=== PATIENT | male | born 1960 | race Caucasian/White ===

== ENCOUNTER 2017-07-14 13:37 | Emergency (ER) | payer BC, OTHER ==
--- NOTE | 2017-07-14 13:40 | PDOC ---
History of Present Illness - General Chief Complaint: Pain, Acute Stated Complaint: RIGHT SHOULDER PAIN Time Seen by Provider: 07/14/17 13:40 History Source: Patient Exam Limitations: No Limitations - History of Present Illness Initial Comments: 07/14/17 14:37 57y M hx of shoulder dislocations present with shoulder pain. Pt sates he tripped and fell yesterday in his home (last night around 10pm( was witnesed by his , he banged his shoulder against the door jam and fell on the ground. HE denies any other injuries including head injury, loc, neck pain, back pain, numbness/tingling/weakness, abd pain. pt took a few percocet prior to presentation Past History - Past Medical History Allergies/Adverse Reactions: Allergies Allergy/AdvReac Type Severity Reaction Status Date / Time No Known Allergies Allergy Verified 07/14/17 13:38 Home Medications: Ambulatory Orders NK [No Known Home Medication] 07/14/17 Anemia: No Asthma: No Cancer: No Cardiac Disorders: No CVA: No COPD: No CHF: No Dementia: No Diabetes: No GI Disorders: No Disorders: No HTN: No Hypercholesterolemia: No Liver Disease: No Seizures: No Thyroid Disease: No - Surgical History Appendectomy: No Cardiac Surgery: No Cholecystectomy: No Lung Surgery: No Neurologic Surgery: No Orthopedic Surgery: No - Suicide/Smoking/Psychosocial Hx Smoking History: Former smoker Have you smoked in the past 12 months: Yes Hx Alcohol Use: Yes (SOCIAL) Drug/Substance Use Hx: No Substance Use Type: None Hx Substance Use Treatment: No Review of Systems - Review of Systems Able to Perform ROS?: Yes Comments:: 07/14/17 14:44 Constitutional - no reported Fever, Chills, HEENT: no reported vision changes, sore throat Respiratory: no reported cough, sob, hemoptysis Cardiac: no reported chest pain, palpitations, light headedness, leg swelling Abd/GI: no reported abd pain, nausea, vomiting, blood per rectum, melena, diarrhea : no reported dysuria, frequency, discharge Musculskelatal - +R Shoulder pain no reported back pain, joint swelling skin - no reported bruising, erythema, rash neurological: no reported headache, numbness, focal weakness, tingling, ataxia, hematologic: no reported easy bruising, easy bleeding *Physical Exam - Physical Exam Comments: 07/14/17 14:44 GENERAL: The patient is awake, alert, and fully oriented, Nontoxic - in no acute distress. HEAD: Normocephalic, atraumatic. NECK: Normal range of motion, supple, no focal midline tenderness in the cervical, thoracic, lumbar spine LUNGS: Breath sounds equal, clear to auscultation bilaterally. No wheezes, no rhonchi, no rales. HEART: Regular rate and rhythm, normal S1 and S2 without murmur, rub or gallop. ABDOMEN: Soft, nontender, No guarding, no rebound. . No CVA tenderness EXTREMITIES: Fullness in the anterior shoulder with deformity noted the shape of his shoulder, sensation intact in the deltoid region, as well as in extremities, strength symmetric in both hands at/arms SKIN: Warm, Dry, normal turgor, Procedures - Consent Consent obtained: Written - Joint Reduction Right Joint Reduction Site: right: Shoulder, Anterior Dislocation Pre-Procedure NV Exam: normal Conscious Sedation: Yes (140mg of propofol and 50mcg fenanyl) Reduction Attempts: 1 Procedure: Other (external rotation) Post-Procedure NV Exam: normal Complications: No Post Joint Reduction Film: joint reduced Progress: 07/14/17 16:40 sling applied - Additional Procedures Progress: Moderate Sedation Procedure Note Sedation administration time: 4:19pm Sedation end time: 4:30pm 11 minutes spent at patient's bedside providing sedation with Propofol and fentayl for shoulder redution. pt was placed on lunchroom monitor throughout Shoulder reduced with no complications, VSS throughout, patient tolerated procedure well. I was present throughout sedation until the pt was awake, alert to self Medical Decision Making - Medical Decision Making 07/14/17 14:45 Suspect shoulder dislocation confirmed with shoulder x-ray Neurovascularly intact Shoulder dislocated approximately [address] IV will if the patient some morphine possibly may need to sedate the patient for reduction 07/14/17 17:33 post reduction film shows reduction of his shoulder dislcoation post reduction neuro status wnl pt required sedation w/ propofol and fentanyl for reductio, currently back at baseline. will dc with ortho fu sling applied return precautions were discussed I discussed the physical exam findings, ancillary test results and final diagnoses with the patient. I answered all of the patient's questions. The patient was satisfied with the care received and felt comfortable with the discharge plan and treatment plan. The patient will call their primary care physician within 24 hours to arrange follow-up and will return to the Emergency Department with any new, persistent or worsening symptoms. *DC/Admit/Observation/Transfer Diagnosis at time of Disposition: Shoulder dislocation Qualifiers: Encounter type: initial encounter Laterality: right Qualified Code(s): S43.004A - Unspecified dislocation of right shoulder joint, initial encounter - Discharge Dispostion Disposition: HOME Condition at time of disposition: Improved Decision to Admit order: No - Referrals Referrals: Rajinder Gage MD [Staff Physician] - - Patient Instructions Printed Discharge Instructions: DI for Shoulder Dislocation, DI for Moderate Sedation Additional Instructions: Keep your arm in a sling. Avoid painting or plastering until you follow up with orthopedic surgeon as this may increase chances of redislocation. Motrin or Tylenol as needed for any pain or discomfort No heavy lifting with affected arm. Print Language: PORTUGUESE - Post Discharge Activity
[2017-07-14 13:42] VITALS: TEMP 98.5; BMI 24.0
[2017-07-14] MEDS ORDERED: SODIUM CHLORIDE 1,000 ML IV ONE (14:43)
[2017-07-14] MEDS ORDERED: morphine CARPU-JECT 4 MG/1 ML DISP.SYRIN IVPUSH ONE (14:43)
[2017-07-14] MEDS ORDERED: morphine SULFATE 4 MG/ML VIAL ONE (14:50)
[2017-07-14] MEDS ORDERED: PROPOFOL 20 ML ONE (16:07)
[2017-07-14 16:17] VITALS: PULSE 86
[2017-07-14] MEDS ORDERED: PROPOFOL 200 MG/20 ML VIAL IVPUSH ONE (16:38)
[2017-07-14 18:33] VITALS: BP 143/88
== END 2017-07-14 17:38 | disposition home or self-care (01) ==
LOC: FER 13:37
PROC: 0RSJXZZ Reposition Right Shoulder Joint, External Approach (ICD-10-PCS; principal; 2017-07-14)
DX: S43.084A Other dislocation of right shoulder joint, initial encounter (principal); W01.198A Fall on same level from slipping, tripping and stumbling with subsequent striking against other object, initial encounter; Y93.89 Activity, other specified; Y92.009 Unspecified place in unspecified non-institutional (private) residence as the place of occurrence of the external cause; Z87.891 Personal history of nicotine dependence
CPT/HCPCS: 73030-TC-RT-FY; 99282-25; J7030

== ENCOUNTER 2019-04-04 09:30 | Emergency (ER) | payer BC ==
[2019-04-04 09:55] VITALS: BP 130/85; PULSE 90; TEMP 98.6; BMI 24.0
[2019-04-04] MEDS ORDERED: KETAMINE HCL 200 MG/20 ML VIAL IVPUSH ONE (10:46)
[2019-04-04] MEDS ORDERED: morphine CARPU-JECT 4 MG/1 ML DISP.SYRIN IVPUSH ONE (11:09)
[2019-04-04] MEDS ORDERED: morphine SULFATE 4 MG/ML VIAL ONE (11:12)
[2019-04-04] MEDS ORDERED: KETAMINE HCL 200 MG/20 ML VIAL ONE (11:12)
[2019-04-04] MEDS ORDERED: LORazepam 2 MG/ML SDV VIAL ONE (11:51)
--- NOTE | 2019-04-04 12:36 | PDOC ---
Attending Attestation - Resident Resident Name: David Mendenhall - ED Attending Attestation I have performed the following: I have examined & evaluated the patient, The case was reviewed & discussed with the resident, I agree w/resident's findings & plan, Exceptions are as noted - HPI HPI: 04/04/19 12:37 58yo M hx etoh abuse, shoulder dislocation x3, insomnia presents to the ED with R shoulder pain. Pt reports drinking "a few" beers last night, fell landing on his R shoulder. Denies head strike, LOC. Since then progressive shoulder pain, feels like when it has been dislocated in the past. Took an ambien at that point to go to sleep until presenting this morning for evaluation. Denies recent F/C, CP, SOB, N/V/D, headache, focal weakness/numbness - Physicial Exam PE: 04/04/19 12:39 GENERAL: Awake, alert, and fully oriented, in no acute distress HEAD: No signs of trauma EYES: PERRLA, EOMI, sclera anicteric, conjunctiva clear ENT: Oropharynx clear without exudates. Moist mucosa NECK: Normal ROM, supple, no lymphadenopathy, JVD, or masses LUNGS: Breath sounds equal, clear to auscultation bilaterally. No wheezes, and no crackles HEART: Regular rate and rhythm, normal S1 and S2, no murmurs, rubs or gallops ABDOMEN: Soft, nontender, normoactive bowel sounds. No guarding, no rebound. No masses EXTREMITIES: R lateral shoulder deformity noted, limited ROM 2/2 pain, 2+ radial pulse, compartments soft, normal sensation of R shoulder. BACK: no midline cervical, thoracic, or lumbar ttp NEUROLOGICAL: Normal speech, cranial nerves intact SKIN: Warm, Dry, normal turgor, no rashes or lesions noted. - Medical Decision Making 58yo M presents to the ED with R shoulder pain, found to have R shoulder dislocation. No fractures noted. Normal sensation over deltoid Pt consented for sedation, airway box, suction, BVM at bedside Time out competed Dosed 1mg/kg ketamine IV, pt with emergence reaction, screaming, improved with ativan 1mg Dr. Mendenhall attempted downward traction/ext rotation and traction/counter traction unsuccessfully despite multiple attempts Dr. Rivas consulted Pt became, awake, alert, conversive. Pt given 1.5mg more ketamine with good response, no emergence reaction Shoulder reduced with traction Sling placed Pt HDS on monitor Will observe post sedation and obtain post reduction films Post reduction films with good reduction, no fracture. Normal sensation throughout RUE Pt tolerating PO Ambulating IN ED with steady gait He is clinically stable for DC home Discharge - Discharge Information Problems reviewed: Yes Clinical Impression/Diagnosis: Shoulder dislocation, recurrent, Shoulder pain, Fall Condition: Good Disposition: HOME - Follow up/Referral Referrals: Keyshawn Fuentes MD [Staff Physician] - Mike Rivas MD [Staff Physician] - Bayron Reeves MD [Primary Care Provider] - - Patient Discharge Instructions Patient Printed Discharge Instructions: How to Use a Sling, DI for Shoulder Dislocation Additional Instructions: Please see your Primary Doctor and Orthopedic surgeon within the next 48 hours. Read the discharge instructions provided regarding shoulder dislocations. Use ice and over the counter Motrin for pain control as recommended on the packaging. Return to the closest ER for new or concerning symptoms including but not limited to: weakness, changes in sensation to the right arm, dislocations. Use your sling over the next 1 week for comfort and do not use your right arm for overhead activity for 1 week. Thank you - Post Discharge Activity
--- NOTE | 2019-04-04 13:19 | PDOC ---
*Physical Exam - Vital Signs Last Vital Signs Temp Pulse Resp BP Pulse Ox 98.6 F 85 22 H 134/84 96 04/04/19 09:32 04/04/19 11:00 04/04/19 11:00 04/04/19 11:00 04/04/19 11:00 ED Treatment Course - RADIOLOGY Radiology Studies Ordered: Category Date Time Status SHOULDER-RIGHT [RAD] Stat Radiology 04/04/19 12:33 Taken - Medications Given in the ED: ED Medications Discontinued Medications Generic Name Dose Route Start Last Admin Trade Name Pepito PRN Reason Stop Dose Admin Morphine Sulfate 4 mg 04/04/19 11:09 04/04/19 11:17 Morphine Injection - IVPUSH 04/04/19 11:10 4 mg ONCE ONE Administration Medical Decision Making - Medical Decision Making 04/04/19 13:17 58 yo male presents tpo ED after fall with R shoulder pain and deformity. PMH 3 past shoulder dislocations See procedure note Pt obs for 1 hour, awake, alert, ambulatory, vital signs normal throught procedure and is safe for DC home with ortho f/u Discharge - Discharge Information Problems reviewed: Yes Clinical Impression/Diagnosis: Shoulder dislocation, recurrent Condition: Good Disposition: HOME - Admission No - Follow up/Referral Referrals: Mike Rivas MD [Staff Physician] - Bayron Reeves MD [Primary Care Provider] - Keyshawn Fuentes MD [Staff Physician] - - Patient Discharge Instructions Patient Printed Discharge Instructions: DI for Shoulder Dislocation, How to Use a Sling Additional Instructions: Please see your Primary Doctor and Orthopedic surgeon within the next 48 hours. Read the discharge instructions provided regarding shoulder dislocations. Use ice and over the counter Motrin for pain control as recommended on the packaging. Return to the closest ER for new or concerning symptoms including but not limited to: weakness, changes in sensation to the right arm, dislocations. Use your sling over the next 1 week for comfort and do not use your right arm for overhead activity for 1 week. Thank you - Post Discharge Activity Procedure Note Procedure: Right shoulder reduction pt positioned prone with R arm off the bed and 3LBS weight than seated in stretcher up right for reduction Procedural sedation, 1 mg per kg given = 60 ketamine. First attempt unsuccessful with traction/counter traction and scap manipulation. Second attempt with Dr. Rivas, 100 mg ketamine given, pt appropriately sedated and with distraction + abduction, shoulder relocated Post reduction film no fractures Pt placed in sling, neurovascularly intact and with obs for 1 hour then pt with drive him home
--- NOTE | 2019-04-05 06:45 | CONS ---
DATE OF CONSULTATION: 04/04/2019 CHIEF COMPLAINT: Right shoulder injury. HISTORY OF PRESENT ILLNESS: This is a 58-year-old gentleman with a history of prior shoulder dislocations who had hurt his shoulder last night. He at that time had a few drinks and fell. He then took a sleeping pill and then came in this morning when he woke up. Patient was initially attempted to have a reduction with the ED staff; however, a successful reduction was not achieved. Orthopaedic consultation was called. PAST MEDICAL HISTORY: Significant for alcohol abuse, insomnia. SOCIAL HISTORY: Alcohol history as above. Denies any tobacco. ALLERGIES: No significant allergies. PAST SURGICAL HISTORY: Noncontributory. REVIEW OF SYMPTOMS: Negative for fever, chills, nausea, vomiting, or night sweats. PHYSICAL EXAMINATION: General: This is a well-appearing male who is seen lying in a hospital stretcher. He has already been partially sedated from the previous reduction attempt. He notes persistent pain in the right shoulder. He denies any numbness or tingling. He denies any pain elsewhere. Extremities: Exam of the right shoulder demonstrates anterior deformity. The elbow is nontender. The wrist is nontender. Distally, sensation is intact to light touch, 2+ radial pulse, 5/5 distal motor. Radiographs were reviewed demonstrating anterior glenohumeral dislocation. ASSESSMENT: Right glenohumeral dislocation. FINDINGS: Discussed today's findings with patient. He has suffered a recurrent anterior shoulder dislocation. I am recommending repeat closed reduction. After review of the risks, benefits, and alternatives, the patient elected to proceed. PROCEDURE: The patient was sedated by the emergency room staff with ketamine. After achieving adequate sedation, the shoulder was positioned in an abduct position and was gently externally rotated as posterior pressure was applied directly to the head. A clunk was felt as the shoulder reduced. Post reduction radiographs were obtained demonstrating satisfactory reduction. The patient was placed into a sling. He should follow up in 1-2 weeks in the office. KAMI JOY M.D. [id number]
== END 2019-04-04 14:43 | disposition home or self-care (01) ==
LOC: FER 09:30
PROC: 3E033NZ Introduction of Analgesics, Hypnotics, Sedatives into Peripheral Vein, Percutaneous Approach (ICD-10-PCS; principal; 2019-04-04)
PROC: 0RSJXZZ Reposition Right Shoulder Joint, External Approach (ICD-10-PCS; 2019-04-04)
DX: M24.411 Recurrent dislocation, right shoulder (principal); W18.39XA Other fall on same level, initial encounter; Y93.89 Activity, other specified; Y92.89 Other specified places as the place of occurrence of the external cause
CPT/HCPCS: 73030-TC-RT-FY; 99284-25

== ENCOUNTER 2019-12-13 04:30 | Emergency (ER) | payer BC, OTHER ==
--- OUTSIDE RECORDS SUMMARY | 2019-12-13 04:48 | XMS ---
:1960 Author Organization [facility] Support Name Relationship Address Phone UE Unavailable Unavailable Unavailable SHERRI LOBO [address] [facility] [address] Re-disclosure Warning The records that you are about to access may contain information from federally- assisted alcohol or drug abuse programs. If such information is present, then the following federally mandated warning applies: This information has been disclosed to you from records protected by federal confidentiality rules (42 CFR part 2). The federal rules prohibit you from making any further disclosure of this information unless further disclosure is expressly permitted by the written consent of the person to whom it pertains or as otherwise permitted by 42 CFR part 2. A general authorization for the release of medical or other information is NOT sufficient for this purpose. The Federal rules restrict any use of the information to criminally investigate or prosecute any alcohol or drug abuse patient.The records that you are about to access may contain highly sensitive health information, the redisclosure of which is protected by Article 27-F of the [facility] Public Health law. If you continue you may haveaccess to information: Regarding HIV / AIDS; Provided by facilities licensed or operated by the [facility] Office of Mental Health; or Provided by the [facility] Office for People With Developmental Disabilities. If such information is present, then the following [facility] mandated warning applies: This information has been disclosed to you from confidential records which are protected by state law. State law prohibits you from making any further disclosure of this information without the specific written consent of the person to whom it pertains, or as otherwise permitted by law. Any unauthorized further disclosure in violation of state law may result in a fine or detention sentence or both. A general authorization for the release of medical or other information is NOT sufficient authorization for further disclosure. Insurance Providers Payer name Policy type / Policy ID Covered Covered republican's Policy Plan Coverage type republican ID relationship to Ron Information ron BC POS [id number] SP [id number] PPO [id number] [place] [id number]
[2019-12-13 05:01] VITALS: BMI 24.0
--- NOTE | 2019-12-13 05:17 | PDOC ---
History of Present Illness - General History Source: Patient Exam Limitations: No Limitations - History of Present Illness Initial Comments: 12/13/19 06:24 59 y.o. M no significant PMHx presenting w/ R sided shoulder pain. Patient stated he was leaning over in his car today when he felt his shoulder pop out of place. Patient has had to have several shoulder reductions in the past. Patient is unable to move R shoulder without provoking 10/10 pain. PMHx: None Meds: In Chart Allergies: NKDA Is this a multiple visit Asthma Patient?: No Timing/Duration: 1-3 hours Severity: moderate <Chapin Trejo - Last Filed: 12/13/19 06:53> <Adam Whitt - Last Filed: 12/13/19 19:39> - General Chief Complaint: Shoulder Dislocation Stated Complaint: INJURY Time Seen by Provider: 12/13/19 06:24 Past History - Medical History Anemia: No Asthma: No Cancer: No Cardiac Disorders: No CVA: No COPD: No CHF: No Dementia: No Diabetes: No GI Disorders: No Disorders: No HTN: No Hypercholesterolemia: No Liver Disease: No Seizures: No Thyroid Disease: No - Surgical History Appendectomy: No Cardiac Surgery: No Cholecystectomy: No Lung Surgery: No Neurologic Surgery: No Orthopedic Surgery: No - Psycho-Social/Smoking History Smoking History: Never smoked Have you smoked in the past 12 months: No If you are a former smoker, when did you quit?: 1999 Information on smoking cessation initiated: No - Substance Abuse Hx (Audit-C & DAST Scrn) How often the patient has a drink containing alcohol: 2-4 times / month Score: In Men: 4 or > Positive; In Women: 3 or > Positive: 2 Screen Result (Pos requires Nsg. Audit-10AR): Negative In the last yr the pt used illegal drug/Rx for NonMed reason: No Score: Yes response is considered Positive: 0 Screen Result (Positive result requires Nsg. DAST-10): Negative <Chapin Trejo - Last Filed: 12/13/19 06:53> <Adam Whitt - Last Filed: 12/13/19 19:39> - Medical History Allergies/Adverse Reactions: Allergies Allergy/AdvReac Type Severity Reaction Status Date / Time No Known Allergies Allergy Verified 04/04/19 09:41 Home Medications: Ambulatory Orders Zolpidem Tartrate [Ambien] 10 mg PO HS 04/04/19 Review of Systems - Review of Systems Able to Perform ROS?: Yes Is the patient limited Slovenian proficient: No Constitutional: No: Chills, Fever HEENTM: No: Blurred Vision, Double Vision Respiratory: No: Cough, Shortness of Breath, Wheezing Cardiac (ROS): No: Chest Pain, Lightheadedness ABD/GI: No: Constipated, Diarrhea, Nausea, Vomiting : No: Burning, Dysuria Musculoskeletal: Yes: Joint Pain, Muscle Pain. No: Muscle Weakness Neurological: No: Headache, Numbness, Tingling, Dizziness Hematologic/Lymphatic: No: Blood Clots, Easy Bleeding, Easy Bruising <Chapin Trejo - Last Filed: 12/13/19 06:53> *Physical Exam - Vital Signs Last Vital Signs Temp Pulse Resp BP Pulse Ox 97.6 F 86 18 107/76 97 12/13/19 04:53 12/13/19 04:53 12/13/19 04:53 12/13/19 04:53 12/13/19 04:53 - Physical Exam General Appearance: Yes: Nourished, Appropriately Dressed Respiratory/Chest: positive: Lungs Clear, Normal Breath Sounds. negative: Chest Tender, Respiratory Distress, Accessory Muscle Use, Crackles, Rales, Stridor, Wheezing Cardiovascular: positive: Regular Rhythm, Regular Rate. negative: Edema, JVD, Murmur Gastrointestinal/Abdominal: positive: Normal Bowel Sounds, Flat, Soft. negative: Tender Musculoskeletal: positive: Normal Inspection. negative: CVA Tenderness Extremity: positive: Normal Inspection. negative: Tender, Cyanosis, Calf Tenderness Integumentary: positive: Normal Color, Dry, Warm Neurologic: positive: Fully Oriented, Alert, Normal Mood/Affect, Normal Response <Chapni Trejo - Last Filed: 12/13/19 06:53> - Vital Signs Last Vital Signs Temp Pulse Resp BP Pulse Ox 97.6 F 86 18 107/76 97 12/13/19 04:53 12/13/19 04:53 12/13/19 04:53 12/13/19 04:53 12/13/19 04:53 <Adam Whitt - Last Filed: 12/13/19 19:39> Procedures - Joint Reduction Right Progress: Post reduction film obtained, R shoulder has been appropriately reduced. 12/13/19 06:51 <Chapin Trejo - Last Filed: 12/13/19 06:53> - Consent Consent obtained: Verbal, From Patient - Joint Reduction Right Joint Reduction Site: right: Shoulder Pre-Procedure NV Exam: normal Conscious Sedation: Yes (75mcg fentanyl and 2mg versed) Reduction Attempts: 1 Post-Procedure NV Exam: normal Complications: No Post Joint Reduction Film: joint reduced Splint: Yes Immobilized: Yes Progress: 12/13/19 06:20 right shoulder dislocation 75mcg fentanyl and 2mg versed for sedation patient kept on monitor and 3L NC supplied Shoulder reduced on first pass using adduction, traction, and external rotation + palpable clunk and visual reduction seen pt able to touch left shoulder w/ right arm; NVI post-reduction film obtained; see Dr. Trejo's comments for results. rest of care per primary team - Laceration/Wound Repair Left Head Wound Length: to 2.5 cm Wound's Depth, Shape: superficial Wound Repaired With: Dermabond Progress: 12/13/19 06:16 superficial laceration to the left forehead, cleaned with chloraprep dermabond applied with good approximation w/ Dr. Trejo and Dr. Morales <Adam Whitt - Last Filed: 12/13/19 19:39> ED Treatment Course - Medications Given in the ED: ED Medications Discontinued Medications Generic Name Dose Route Start Last Admin Trade Name Kleberq PRN Reason Stop Dose Admin Fentanyl 100 mcg 12/13/19 05:58 12/13/19 06:11 Sublimaze Injection - IVPUSH 12/13/19 05:59 100 mcg ONCE ONE Administration Midazolam HCl 2 mg 12/13/19 05:56 12/13/19 06:11 Versed - IVPUSH 12/13/19 05:57 2 mg ONCE ONE Administration Morphine Sulfate 4 mg 12/13/19 05:35 12/13/19 05:42 Morphine Injection - IVPUSH 12/13/19 05:36 4 mg ONCE ONE Administration <Adam Whitt - Last Filed: 12/13/19 19:39> Medical Decision Making - Medical Decision Making 12/13/19 06:28 59 y.o. M no significant PMHx presenting w/ R sided shoulder pain. Given 75mg fentanyl, 2mg versed - Shoulder reduced on first attempt with traction DDx: R shoulder dislocation X-Ray: Anterior shoulder dislocation X-ray: post reduction film shows shoulder has been appropriately relocated Dispo: D/C home 12/13/19 06:49 12/13/19 06:52 12/13/19 06:53 <Chapin Trejo - Last Filed: 12/13/19 06:53> Discharge - Discharge Information Problems reviewed: Yes - Admission No <Chapin Trejo - Last Filed: 12/13/19 06:53> <Adam Whitt - Last Filed: 12/13/19 19:39> - Discharge Information Clinical Impression/Diagnosis: Shoulder dislocation, recurrent Qualifiers: Laterality: right Qualified Code(s): M24.411 - Recurrent dislocation, right shoulder Condition: Improved Disposition: HOME - Follow up/Referral Referrals: Bayron Reeves MD [Primary Care Provider] - Henry Montes De Oca MD [Staff Physician] - - Patient Discharge Instructions Patient Printed Discharge Instructions: DI for Shoulder Dislocation Additional Instructions: You were seen in the emergency department for shoulder dislocation. You received pain medication . Your labs and imaging showed findings of a shoulder dislocation This can be caused by ligament laxity or recurrent injury. As such you were treated for a shoulder dislocation. You were given pain medications in the emergency department. Please follow up with your primary care physician and or orthopedics regarding your visit to the emergency department. If you experience profound muscle aching, dislocation, chest pain, difficulty breathing please return to the emergency department or call 911. - Post Discharge Activity
[2019-12-13] MEDS ORDERED: SODIUM CHLORIDE 1,000 ML IV STA (05:26)
--- NOTE | 2019-12-13 05:27 | PDOC ---
Attending Attestation - Resident Resident Name: Chapin Trejo - ED Attending Attestation I have performed the following: I have examined & evaluated the patient, The case was reviewed & discussed with the resident, I agree w/resident's findings & plan - HPI HPI: 12/13/19 23:37 Pt dislocated shoulder 6th time this happened to him. He drank etoh and was reaching for remote control over the sofa and fell, dislocating the right shoulder and struck his forehead on his way up on coffee table. No LOC - Physicial Exam PE: 12/13/19 23:38 Pt has right arm anterior dislocation. Pt is alert. 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 conscious sedation with fentanyl 100mcg and 2mg versed after morphine for pain. Pt tolerated the porcedure well and monitored afterward. 12/13/19 23:41 Pt signed out to the day team to d/c patient after he eats a bit. Discharge - Discharge Information Problems reviewed: Yes Clinical Impression/Diagnosis: Shoulder dislocation, recurrent Qualifiers: Laterality: right Qualified Code(s): M24.411 - Recurrent dislocation, right shoulder Condition: Improved Disposition: HOME - Follow up/Referral Referrals: Bayron Reeves MD [Primary Care Provider] - Henry Montes De Oca MD [Staff Physician] - - Patient Discharge Instructions Patient Printed Discharge Instructions: DI for Shoulder Dislocation Additional Instructions: You were seen in the emergency department for shoulder dislocation. You received pain medication . Your labs and imaging showed findings of a shoulder dislocation This can be caused by ligament laxity or recurrent injury. As such you were treated for a shoulder dislocation. You were given pain medications in the emergency department. Please follow up with your primary care physician and or orthopedics regarding your visit to the emergency department. If you experience profound muscle aching, dislocation, chest pain, difficulty breathing please return to the emergency department or call 911. - Post Discharge Activity
[2019-12-13] MEDS ORDERED: morphine CARPU-JECT 4 MG/1 ML DISP.SYRIN IVPUSH ONE (05:35)
[2019-12-13] MEDS ORDERED: morphine SULFATE 4 MG/ML VIAL ONE (05:37)
[2019-12-13] MEDS ORDERED: MIDAZOLAM HCL 2 MG/2 ML SINGLE DOSE VIAL IVPUSH ONE (05:56)
[2019-12-13] MEDS ORDERED: MIDAZOLAM HCL 2 MG/2 ML SINGLE DOSE VIAL ONE (05:58)
[2019-12-13] MEDS ORDERED: DIPHTH,PERTUSS(ACELL),TET 0.5 ML DISP.SYRIN IM ONE ×2 (07:04→07:36)
--- NOTE | 2019-12-13 07:13 | PDOC ---
*Physical Exam - Vital Signs Last Vital Signs Temp Pulse Resp BP Pulse Ox 97.6 F 86 18 107/76 97 12/13/19 04:53 12/13/19 04:53 12/13/19 04:53 12/13/19 04:53 12/13/19 04:53 ED Treatment Course - Medications Given in the ED: ED Medications Discontinued Medications Generic Name Dose Route Start Last Admin Trade Name Pepito PRN Reason Stop Dose Admin Fentanyl 100 mcg 12/13/19 05:58 12/13/19 06:11 Sublimaze Injection - IVPUSH 12/13/19 05:59 100 mcg ONCE ONE Administration Sodium Chloride 1,000 mls @ 1,000 mls/hr 12/13/19 05:26 12/13/19 05:42 Normal Saline - IV 12/13/19 06:25 1,000 mls/hr ASDIR STA Administration Midazolam HCl 2 mg 12/13/19 05:56 12/13/19 06:11 Versed - IVPUSH 12/13/19 05:57 2 mg ONCE ONE Administration Morphine Sulfate 4 mg 12/13/19 05:35 12/13/19 05:42 Morphine Injection - IVPUSH 12/13/19 05:36 4 mg ONCE ONE Administration Medical Decision Making - Medical Decision Making 12/13/19 07:11 Signed out to me by night team. Here with right shoulder dislocation, reduced with Fentanyl and Versed, confirmed by XR. Was still a bit affected by Versed. Needs PO challenge and can dispo home. Ortho follow-up. 12/13/19 07:40 Patient alert, oriented, ambulatory with normal gait. Tolerating PO without issues. Full ROM to right arm, X-ray examined and appears reduced. Sling given. Stable for d/c home with ortho f/u. Discharge - Discharge Information Problems reviewed: Yes Clinical Impression/Diagnosis: Shoulder dislocation, recurrent Qualifiers: Laterality: right Qualified Code(s): M24.411 - Recurrent dislocation, right shoulder Condition: Improved Disposition: HOME - Follow up/Referral Referrals: Bayron Reeves MD [Primary Care Provider] - Henry Montes De Oca MD [Staff Physician] - - Patient Discharge Instructions Patient Printed Discharge Instructions: DI for Shoulder Dislocation Additional Instructions: You were seen in the emergency department for shoulder dislocation. You received pain medication . Your labs and imaging showed findings of a shoulder dislocation This can be caused by ligament laxity or recurrent injury. As such you were treated for a shoulder dislocation. You were given pain medications in the emergency department. Please follow up with your primary care physician and or orthopedics regarding your visit to the emergency department. If you experience profound muscle aching, dislocation, chest pain, difficulty breathing please return to the emergency department or call 911. - Post Discharge Activity
[2019-12-13 07:50] VITALS: BP 125/89; PULSE 82; TEMP 97.5
== END 2019-12-13 08:00 | disposition home or self-care (01) ==
LOC: JER 04:30
PROC: 0RSJXZZ Reposition Right Shoulder Joint, External Approach (ICD-10-PCS; principal; 2019-12-13)
PROC: 0HQ0XZZ Repair Scalp Skin, External Approach (ICD-10-PCS; 2019-12-13)
PROC: 3E033NZ Introduction of Analgesics, Hypnotics, Sedatives into Peripheral Vein, Percutaneous Approach (ICD-10-PCS; 2019-12-13)
PROC: 3E033GC Introduction of Other Therapeutic Substance into Peripheral Vein, Percutaneous Approach (ICD-10-PCS; 2019-12-13)
PROC: 3E0337Z Introduction of Electrolytic and Water Balance Substance into Peripheral Vein, Percutaneous Approach (ICD-10-PCS; 2019-12-13)
PROC: 3E0234Z Introduction of Serum, Toxoid and Vaccine into Muscle, Percutaneous Approach (ICD-10-PCS; 2019-12-13)
DX: M24.411 Recurrent dislocation, right shoulder (principal); S01.81XA Laceration without foreign body of other part of head, initial encounter
CPT/HCPCS: 73030-TC-RT-FY; 90715; 99284-25

== ENCOUNTER 2020-02-01 02:29 | Emergency (ER) | payer OTHER ==
[2020-02-01 02:38] VITALS: BMI 24.0
[2020-02-01 02:41] VITALS: PULSE 87; TEMP 97.9
[2020-02-01] MEDS ORDERED: MIDAZOLAM HCL 2 MG/2 ML SINGLE DOSE VIAL IVPUSH ONE ×2 (03:00→03:35)
[2020-02-01] MEDS ORDERED: MIDAZOLAM HCL 2 MG/2 ML SINGLE DOSE VIAL ONE ×2 (03:07→03:21)
[2020-02-01 04:49] VITALS: BP 118/79
== END 2020-02-01 04:53 | disposition home or self-care (01) ==
LOC: FER 02:29
PROC: 0RSJXZZ Reposition Right Shoulder Joint, External Approach (ICD-10-PCS; principal; 2020-02-01)
PROC: 3E033NZ Introduction of Analgesics, Hypnotics, Sedatives into Peripheral Vein, Percutaneous Approach (ICD-10-PCS; 2020-02-01)
PROC: 3E033NZ Introduction of Analgesics, Hypnotics, Sedatives into Peripheral Vein, Percutaneous Approach (ICD-10-PCS; 2020-02-01)
PROC: 3E033NZ Introduction of Analgesics, Hypnotics, Sedatives into Peripheral Vein, Percutaneous Approach (ICD-10-PCS; 2020-02-01)
DX: S43.004A Unspecified dislocation of right shoulder joint, initial encounter (principal)
CPT/HCPCS: 99284-25